=== PATIENT | female | born 2000 | race Caucasian/White ===

== ENCOUNTER 2021-03-20 11:12 | Outpatient (CLI) | payer OTHER ==
[~2021-03-20] VITALS: Ht 154.9 cm; Wt 90.9 kg
[2021-03-20 11:00] VITALS: BP 137/73
[2021-03-20] MEDS ORDERED: PREN1TAB10 PO (11:53)
[2021-03-20] MEDS ORDERED: ACET-1600 PO (11:53)
== END 2021-03-20 12:18 | disposition home or self-care (01) ==
LOC: LDOP 11:12
PROVIDERS: ATTEND Obstetrics & Gynecology
DX: O36.8130 Decreased fetal movements, third trimester, not applicable or unspecified (principal); Z3A.37 37 weeks gestation of pregnancy
CPT/HCPCS: 59025

== ENCOUNTER 2021-04-01 01:35 | Inpatient (IN) | payer OTHER ==
[~2021-04-01] VITALS: Ht 154.9 cm; Wt 91.5 kg
[~2021-04-01 01:35] MED LIST: ACET-1600 PO; PREN1TAB10 PO
[2021-04-01] MEDS ORDERED: OXYTOCIN 30U/ 0.9% NaCL 500ML 500 ML ONE (17:53)
[2021-04-01] MEDS ORDERED: LIDOCAINE 1%, 20ML ONE (17:54)
[2021-04-01] MEDS ORDERED: NEWBORN KIT ONE (17:54)
[2021-04-01] MEDS ORDERED: MISOPROSTOL 25 MCG TABLET VG PRN (18:00)
[2021-04-01] MEDS ORDERED: FENTANYL PF 100 MCG/2ML IVPush PRN (18:00)
[2021-04-01] MEDS ORDERED: OXYTOCIN 30U/ 0.9% NaCL 500ML 500 ML IV ONE (18:00)
[2021-04-01] MEDS ORDERED: TERBUTALINE 1 MG/ML, 1ML SQ PRN (18:00)
[2021-04-01] MEDS ORDERED: ONDANSETRON 2MG/ML, 2ML IVPush PRN (18:00)
[2021-04-01] MEDS ORDERED: D5%-LACTATED RINGERS 1,000 ML IV SCH (18:00)
[2021-04-01] MEDS ORDERED: OXYTOCIN 30U/ 0.9% NaCL 500ML 500 ML IV PRN (18:00)
[2021-04-01] MEDS ORDERED: TERBUTALINE 1 MG/ML, 1ML IVPush PRN (18:00)
[2021-04-01] MEDS ORDERED: FENTANYL PF 100 MCG/2ML IV PRN (18:00)
[2021-04-01] MEDS ORDERED: CALCIUM CARBONATE 500 MG TAB.CHEW PO PRN (18:00)
[2021-04-01] MEDS ORDERED: MISOPROSTOL 25 MCG TABLET ONE (18:01)
[2021-04-01] MEDS: LACTATED RINGERS 1,000 ML IV SCH ×2 (18:23→23:00)
[2021-04-01 18:24] LABS: BASOPHILS % (AUTO) 0 % (0-1); EOSINOPHILS % (AUTO) 1 % (1-7); LYMPHOCYTES % (AUTO) 19 % (22-44); MEAN CORPUSCULAR HEMOGLOBIN 27.9 pg (27.0-34.8); MEAN CORPUSCULAR HGB CONC 32.9 g/dL (32.4-35.8); MEAN PLATELET VOLUME 8.8 fL (7.4-10.4); MONOCYTES % (AUTO) 8 % (2-9); NEUTROPHILS % (AUTO) 72 % (42-75); PLATELET COUNT 188 x10^3/uL (130-400); RED BLOOD COUNT 4.24 x10^6/uL (3.82-5.3); RED CELL DISTRIBUTION WIDTH 14.8 % (9.6-15.2)
[2021-04-01] MEDS ORDERED: PLEASE ENTER HEIGHT AND WEIGHT MC SCH (18:30)
[2021-04-01] MEDS ORDERED: PLEASE ENTER ALLERGIES MC SCH (18:30)
[2021-04-02] MEDS ORDERED: OXYTOCIN 30U/ 0.9% NaCL 500ML 500 ML IV PRN (02:00)
[2021-04-02] MEDS ORDERED: FENTANYL/BUPIV./NS/PF 250 ML EPIDCONT ONE (06:00)
[2021-04-02] MEDS ORDERED: BUPIVACAINE 0.25% ONE ×2 (06:00→10:04)
[2021-04-02] MEDS ORDERED: LACTATED RINGERS 1,000 ML IVBOLUS PRN (07:00)
[2021-04-02] MEDS ORDERED: ONDANSETRON 2MG/ML, 2ML IVPush PRN ×2 (07:00→08:30)
[2021-04-02] MEDS ORDERED: DIPHENHYDRAMINE 50 MG/ML, 1ML IVPush PRN (07:00)
[2021-04-02] MEDS ORDERED: EPHEDRINE 50 MG/ML, 1ML IVPush PRN (07:00)
[2021-04-02] MEDS ORDERED: NALOXONE 0.4 MG/ML, 1ML IVPush PRN (07:00)
[2021-04-02] MEDS ORDERED: FENTANYL/BUPIV./NS/PF 250 ML EPIDCONT SCH (07:00)
[2021-04-02] MEDS: LACTATED RINGERS 1,000 ML IV SCH ×4 (09:45→23:00)
[2021-04-02] MEDS ORDERED: IBUPROFEN 600 MG TABLET ONE (14:24)
[2021-04-02] MEDS: IBUPROFEN 600 MG TABLET PO PRN ×2 (14:25→22:14)
[2021-04-02] MEDS: OXYTOCIN 30U/ 0.9% NaCL 500ML 500 ML IV SCH (14:30)
[2021-04-02] MEDS ORDERED: SIMETHICONE 80 MG CHEW TAB PO PRN (14:30)
[2021-04-02] MEDS ORDERED: ACETAMINOPHEN 325 MG TABLET PO PRN (14:30)
[2021-04-02] MEDS ORDERED: ONDANSETRON 2MG/ML, 2ML IV PRN (14:30)
[2021-04-02] MEDS ORDERED: OXYcodone/APAP 5/325MG TABLET PO PRN ×2 (14:30)
[2021-04-02 16:45] VITALS: BP 120/86
[2021-04-02 20:00] VITALS: BP 112/76
[2021-04-02 21:13] LABS: BASOPHILS % (AUTO) 1 % (0-1); EOSINOPHILS % (AUTO) 0 % (1-7); LYMPHOCYTES % (AUTO) 11 % (22-44); MEAN CORPUSCULAR HEMOGLOBIN 27.9 pg (27.0-34.8); MEAN CORPUSCULAR HGB CONC 32.9 g/dL (32.4-35.8); MEAN PLATELET VOLUME 8.6 fL (7.4-10.4); MONOCYTES % (AUTO) 6 % (2-9); NEUTROPHILS % (AUTO) 82 % (42-75); PLATELET COUNT 171 x10^3/uL (130-400); RED BLOOD COUNT 3.97 x10^6/uL (3.82-5.3); RED CELL DISTRIBUTION WIDTH 14.9 % (9.6-15.2)
[2021-04-02] MEDS: DOCUSATE 100 MG CAPSULE PO PRN (22:13)
[2021-04-03 00:15] VITALS: BP 109/76
[2021-04-03] MEDS: OXYTOCIN 30U/ 0.9% NaCL 500ML 500 ML IV SCH (00:30)
[2021-04-03] MEDS ORDERED: METHYLERGONOVINE 0.2 MG/ML IM ONE (03:03)
[2021-04-03] MEDS ORDERED: MISOPROSTOL 200 MCG TABLET ONE (03:03)
[2021-04-03 04:00] VITALS: BP 103/71
[2021-04-03] MEDS: IBUPROFEN 600 MG TABLET PO PRN ×2 (04:57→12:50)
[2021-04-03] MEDS ORDERED: IBUP-1222 PO (06:39)
[2021-04-03] MEDS: LACTATED RINGERS 1,000 ML IV SCH (07:00)
[2021-04-03 07:30] VITALS: BP 102/71
[2021-04-03] MEDS: DOCUSATE 100 MG CAPSULE PO PRN (08:27)
[2021-04-03] MEDS ORDERED: PRENATAL VIT/IRON/FA 1 EACH TABLET PO SCH (09:00)
[2021-04-03 11:51] VITALS: BP 101/63
== END 2021-04-03 15:35 | disposition home or self-care (01) | DRG 833 ==
LOC: LDIP 17:25 → 2NW 04-02 16:39
PROVIDERS: ADMIT Obstetrics & Gynecology; ATTEND Obstetrics & Gynecology
PROC: 10E0XZZ Delivery of Products of Conception, External Approach (ICD-10-PCS; principal; 2021-04-02)
PROC: 3E0R3BZ Introduction of Anesthetic Agent into Spinal Canal, Percutaneous Approach (ICD-10-PCS; 2021-04-02)
PROC: 00HU33Z Insertion of Infusion Device into Spinal Canal, Percutaneous Approach (ICD-10-PCS; 2021-04-02)
PROC: 10H07YZ Insertion of Other Device into Products of Conception, Via Natural or Artificial Opening (ICD-10-PCS; 2021-04-02)
PROC: 0HQ9XZZ Repair Perineum Skin, External Approach (ICD-10-PCS; 2021-04-02)
DX: O62.2 Other uterine inertia (principal); O70.0 First degree perineal laceration during delivery; Z20.822 Contact with and (suspected) exposure to COVID-19; Z3A.39 39 weeks gestation of pregnancy; Z83.3 Family history of diabetes mellitus
CPT/HCPCS: 36415; 85025; 86592; 86850; 86900; 87635; G0378; J2405; J3010; J2210; J2590; J7120

== ENCOUNTER 2021-04-09 21:53 | Emergency (ER) | payer OTHER ==
[~2021-04-09] VITALS: Ht 154.9 cm; Wt 84.6 kg
[~2021-04-09 21:53] MED LIST changes: +IBUP-1222 PO
[2021-04-10 00:09] LABS: BASOPHILS % (AUTO) 0 % (0-1); EOSINOPHILS % (AUTO) 1 % (1-7); LYMPHOCYTES % (AUTO) 13 % (22-44); MEAN CORPUSCULAR HEMOGLOBIN 27.7 pg (27.0-34.8); MEAN CORPUSCULAR HGB CONC 32.5 g/dL (32.4-35.8); MEAN PLATELET VOLUME 7.4 fL (7.4-10.4); MONOCYTES % (AUTO) 5 % (2-9); NEUTROPHILS % (AUTO) 82 % (42-75); PLATELET COUNT 365 x10^3/uL (130-400); RED BLOOD COUNT 4.44 x10^6/uL (3.82-5.3); RED CELL DISTRIBUTION WIDTH 14.9 % (9.6-15.2)
--- NOTE | 2021-04-10 00:13 | NUR ---
PT REPORTS SHE GAVE A WEEK AGO. PT HAS HAD A INCRASE OF BLOOD THAT HAS BEEN GUSHING WITH CLOTS. VS STABLE. FAMILY AT BEDSIDE. CALL LIGHT IN PLACE. WILL CONTINUE TO MONITOR.
[2021-04-10 00:18] LABS: ALBUMIN 3.1 g/dL (3.4-5.0); ANION GAP 7 mmol/L (5-15); CALCIUM 8.5 mg/dL (8.5-10.1); CHLORIDE 106 mmol/L (98-107); CREATININE 0.58 mg/dL (0.55-1.02)
--- NOTE | 2021-04-10 00:39 | NUR ---
pt ambulated to bathroom. vs stable. call light in place. no acute distress noted. will continue to monitor
[2021-04-10 00:41] VITALS: BP 113/75
== END 2021-04-10 01:32 | disposition home or self-care (01) ==
LOC: ED 23:59
DX: O72.2 Delayed and secondary postpartum hemorrhage (principal); Z37.0 Single live birth
CPT/HCPCS: 36415; 76830; 80048; 82040; 85025; 99284